=== PATIENT | female | born 2000 | race Caucasian/White ===

== ENCOUNTER 2024-12-12 08:35 | Outpatient (CLI) | payer BC, SELFPAY ==
--- NOTE | ~2024-12-12 | US_ITS ---
US breast BI complete 12/12/2024 08:59 Indication: Nipple discharge Procedure: Palpable right breast abnormality Comparison: No prior studies for comparison. Findings: There are dilated ducts in the area of palpable concern in the subareolar location. No disc rete mass is identified. Impression: 1: No sonographic evidence for malignancy. Benign-appearing dilated subareolar ducts correspond to th e area of palpable concern. BI-RADS CATEGORY 2 - BENIGN FINDINGS Reviewed, dictated and finalized at location B. Impression: 1: No sonographic evidence for malignancy. Benign-appearing dilated subareolar ducts correspond to the area of palpable concern. BI-RADS CATEGORY 2 - BENIGN FINDINGS
== END 2024-12-12 08:36 | disposition home or self-care (01) ==
PROVIDERS: PCP Nurse Practitioner; Visit Provider Nurse Practitioner
DX: N64.52 Nipple discharge (principal)
CPT/HCPCS: 76641